=== PATIENT | male | born 1975 | race Caucasian/White ===

== ENCOUNTER 2018-01-07 18:58 | Inpatient (IN) | payer OTHER ==
[2018-01-07] MEDS ORDERED: NACL 0.9% 3 ML SYG IV (21:00)
[2018-01-07] MEDS ORDERED: DOCUSATE SODIUM 100 MG CAP PO (21:00)
[2018-01-07] MEDS ORDERED: BISACODYL (EC) 5 MG TAB PO (21:00)
[2018-01-07 21:19] LABS: ADD MAN DIFF? NO
[2018-01-07 21:21] LABS: BASOPHILS % 0.2 % (0.0-2.0); HEMATOCRIT 46.7 % (42.0-52.0); LYMPHOCYTES # 1.2 10^3/ul (0.8-2.9); LYMPHOCYTES % 12.4 % (15.0-51.0); MEAN CORPUSCULAR HEMOGLOBIN 28.2 pg (29.0-33.0); MEAN CORPUSCULAR HGB CONC 32.1 g/dl (32.0-37.0); MEAN CORPUSCULAR VOLUME 87.9 fl (82.0-101.0); MEAN PLATELET VOLUME 9.5 fl (7.4-10.4); MONOCYTE # 0.9 10^3/ul (0.3-0.9); MONOCYTES % 9.2 % (0.0-11.0); NEUTROPHIL # 7.2 10^3/ul (1.6-7.5); NEUTROPHILS % 77.7 % (39.0-77.0); PLATELET COUNT 195 10^3/UL (140-415); RED BLOOD COUNT 5.31 10^6/ul (4.70-6.10); RED CELL DISTRIBUTION WIDTH 12.6 % (11.5-14.5)
[2018-01-07 21:21] LABS: WHITE BLOOD COUNT 9.3 10^3/ul (4.8-10.8)
[2018-01-07] MEDS: ONDANSETRON 4 MG INJ IV (21:33)
[2018-01-07] MEDS: SOD CHLORIDE 0.9% 1,000 ML IV (21:34)
[2018-01-07] MEDS: TAMSULOSIN (SR) 0.4 MG CAP PO (21:34)
[2018-01-07] MEDS: HYDROmorphONE 0.5 MG/0.5 ML SYG IV (21:35)
[2018-01-07 21:38] LABS: ALANINE AMINOTRANSFERASE 32 IU/L (13-69); ALBUMIN 3.6 g/dl (3.3-4.9); ALBUMIN/GLOBULIN RATIO 1.44; ALKALINE PHOSPHATASE 47 IU/L (42-121); ANION GAP 13 (8-16); ASPARTATE AMINO TRANSFERASE 18 IU/L (15-46); BILIRUBIN,INDIRECT 0.8 mg/dl (0-1.1); BILIRUBIN,TOTAL 0.8 mg/dl (0.2-1.3); BLOOD UREA NITROGEN 18 mg/dl (7-20); CALCIUM 8.8 mg/dl (8.4-10.2); CARBON DIOXIDE 25 mmol/L (21-31); CHLORIDE 109 mmol/L (97-110); CREATININE 1.42 mg/dl (0.61-1.24); GLUCOSE 104 mg/dl (70-220); POTASSIUM 5.4 mmol/L (3.5-5.1); SODIUM 142 mmol/L (135-144); TOTAL PROTEIN 6.1 g/dl (6.1-8.1)
[2018-01-07 21:40] LABS: INR 1.08; PARTIAL THROMBOPLASTIN TIME 26.9 Sec (25.0-35.0); PROTIME 14.1 Sec (11.9-14.9); PT RATIO 1.1
[2018-01-08 01:43] LABS: ADD UMIC YES; UR ASCORBIC ACID NEGATIVE (NEGATIVE); UR BILIRUBIN (Dip) NEGATIVE (NEGATIVE); UR BLOOD (Dip) 3+ mg/dL (NEGATIVE); UR CLARITY CLEAR (CLEAR); UR COLOR YELLOW (YELLOW); UR GLUCOSE (Dip) NEGATIVE (NEGATIVE); UR KETONES (Dip) 2+ mg/dL (NEGATIVE); UR LEUKOCYTE ESTERASE (Dip) NEGATIVE Leu/ul (NEGATIVE); UR MUCUS FEW /HPF (NONE SEEN); UR NITRITE (Dip) NEGATIVE (NEGATIVE); UR RBC > 182 /HPF (0-5); UR SPECIFIC GRAVITY (Dip) 1.032 (1.003-1.030); UR TOTAL PROTEIN (Dip) NEGATIVE (NEGATIVE); UR UROBILINOGEN (Dip) 1+ mg/dL (NEGATIVE); UR WBC 2 /HPF (0-5)
[2018-01-08] MEDS: HYDROmorphONE 0.5 MG/0.5 ML SYG IV ×4 (04:01→12:39)
[2018-01-08] MEDS: ONDANSETRON 4 MG INJ IV ×2 (04:01→19:40)
[2018-01-08] MEDS: SOD CHLORIDE 0.9% 1,000 ML IV ×3 (05:15→20:39)
[2018-01-08] MEDS: SOD CHLORIDE 0.9% 500 ML IV (05:23)
[2018-01-08 05:29] LABS: ADD MAN DIFF? NO
[2018-01-08 05:36] LABS: BASOPHILS % 0.5 % (0.0-2.0); EOSINOPHILS # 0.1 10^3/ul (0.0-0.5); EOSINOPHILS % 0.9 % (0.0-7.0); HEMATOCRIT 45.7 % (42.0-52.0); HEMOGLOBIN 14.6 g/dl (14.0-18.0); LYMPHOCYTES # 1.7 10^3/ul (0.8-2.9); LYMPHOCYTES % 21.5 % (15.0-51.0); MEAN CORPUSCULAR HEMOGLOBIN 28.4 pg (29.0-33.0); MEAN CORPUSCULAR HGB CONC 31.9 g/dl (32.0-37.0); MEAN CORPUSCULAR VOLUME 88.9 fl (82.0-101.0); MEAN PLATELET VOLUME 10.1 fl (7.4-10.4); MONOCYTE # 0.7 10^3/ul (0.3-0.9); MONOCYTES % 8.6 % (0.0-11.0); NEUTROPHIL # 5.5 10^3/ul (1.6-7.5); NEUTROPHILS % 68.3 % (39.0-77.0); PLATELET COUNT 168 10^3/UL (140-415); RED BLOOD COUNT 5.14 10^6/ul (4.70-6.10); RED CELL DISTRIBUTION WIDTH 12.7 % (11.5-14.5)
[2018-01-08 05:59] LABS: ALANINE AMINOTRANSFERASE 31 IU/L (13-69); ALBUMIN 3.3 g/dl (3.3-4.9); ALBUMIN/GLOBULIN RATIO 1.32; ALKALINE PHOSPHATASE 48 IU/L (42-121); ANION GAP 13 (8-16); ASPARTATE AMINO TRANSFERASE 17 IU/L (15-46); BILIRUBIN,INDIRECT 0.8 mg/dl (0-1.1); BILIRUBIN,TOTAL 0.8 mg/dl (0.2-1.3); BLOOD UREA NITROGEN 20 mg/dl (7-20); CALCIUM 8.6 mg/dl (8.4-10.2); CARBON DIOXIDE 25 mmol/L (21-31); CHLORIDE 111 mmol/L (97-110); CREATININE 1.55 mg/dl (0.61-1.24); GLUCOSE 91 mg/dl (70-220); MAGNESIUM 1.9 mg/dl (1.7-2.5); SODIUM 144 mmol/L (135-144); TOTAL PROTEIN 5.8 g/dl (6.1-8.1)
[2018-01-08 07:27] LABS: T3 UPTAKE 36.7 % (23.5-40.5)
[2018-01-08 07:40] LABS: THYROID STIMULATING HORMONE 0.472 MIU/L (0.465-4.680)
[2018-01-08] MEDS: ACETAMINOPHEN 325 MG TAB PO ×2 (10:22→17:27)
[2018-01-08] MEDS ORDERED: morphine (ER) 15 MG TAB PO (15:00)
[2018-01-08] MEDS: HYDROmorphONE 1 MG/ML SYG IV ×2 (15:06→19:45)
[2018-01-08] MEDS: TAMSULOSIN (SR) 0.4 MG CAP PO ×2 (16:12→20:39)
[2018-01-08] MEDS: VENLAFAXINE (XR) 75 MG CAP PO (20:30)
[2018-01-08] MEDS: morphine (ER) 15 MG TAB PO (20:39)
[2018-01-09] MEDS: HYDROmorphONE 1 MG/ML SYG IV ×4 (01:25→23:32)
[2018-01-09] MEDS: ACETAMINOPHEN 325 MG TAB PO ×2 (05:25→12:57)
[2018-01-09] MEDS: PANTOPRAZOLE (EC) 40 MG TAB PO (05:25)
[2018-01-09] MEDS: SOD CHLORIDE 0.9% 1,000 ML IV ×3 (05:26→16:55)
[2018-01-09 05:51] LABS: WHITE BLOOD COUNT 11.6 10^3/ul (4.8-10.8)
[2018-01-09 05:51] LABS: ADD MAN DIFF? NO; BASOPHILS % 0.3 % (0.0-2.0); EOSINOPHILS % 0.1 % (0.0-7.0); HEMATOCRIT 47.2 % (42.0-52.0); HEMOGLOBIN 14.8 g/dl (14.0-18.0); LYMPHOCYTES # 0.9 10^3/ul (0.8-2.9); MEAN CORPUSCULAR HGB CONC 31.4 g/dl (32.0-37.0); MEAN CORPUSCULAR VOLUME 89.4 fl (82.0-101.0); MEAN PLATELET VOLUME 10.3 fl (7.4-10.4); MONOCYTE # 0.9 10^3/ul (0.3-0.9); MONOCYTES % 7.4 % (0.0-11.0); NEUTROPHIL # 9.8 10^3/ul (1.6-7.5); NEUTROPHILS % 83.8 % (39.0-77.0); PLATELET COUNT 179 10^3/UL (140-415); RED BLOOD COUNT 5.28 10^6/ul (4.70-6.10); RED CELL DISTRIBUTION WIDTH 12.8 % (11.5-14.5)
[2018-01-09 06:11] LABS: ALANINE AMINOTRANSFERASE 26 IU/L (13-69); ALBUMIN 3.5 g/dl (3.3-4.9); ALKALINE PHOSPHATASE 47 IU/L (42-121); ANION GAP 11 (8-16); ASPARTATE AMINO TRANSFERASE 14 IU/L (15-46); BILIRUBIN,INDIRECT 0.6 mg/dl (0-1.1); BILIRUBIN,TOTAL 0.6 mg/dl (0.2-1.3); BLOOD UREA NITROGEN 14 mg/dl (7-20); CALCIUM 8.6 mg/dl (8.4-10.2); CARBON DIOXIDE 28 mmol/L (21-31); CHLORIDE 109 mmol/L (97-110); CREATININE 1.35 mg/dl (0.61-1.24); GLUCOSE 104 mg/dl (70-220); POTASSIUM 5.2 mmol/L (3.5-5.1); SODIUM 143 mmol/L (135-144)
[2018-01-09 06:39] LABS: INR 1.12; PROTIME 14.6 Sec (11.9-14.9); PT RATIO 1.1
[2018-01-09] MEDS: TAMSULOSIN (SR) 0.4 MG CAP PO ×2 (08:13→21:15)
[2018-01-09] MEDS: VENLAFAXINE (XR) 75 MG CAP PO (08:13)
[2018-01-09] MEDS: morphine (ER) 15 MG TAB PO ×2 (08:14→21:16)
[2018-01-09] MEDS: NA POLYST SULFON 15 GM/60 ML BTL PO (17:46)
[2018-01-10] MEDS: SOD CHLORIDE 0.9% 1,000 ML IV ×4 (01:13→17:42)
[2018-01-10] MEDS: PANTOPRAZOLE (EC) 40 MG TAB PO (05:55)
[2018-01-10 06:35] LABS: ANION GAP 13 (8-16); BLOOD UREA NITROGEN 12 mg/dl (7-20); CALCIUM 8.7 mg/dl (8.4-10.2); CARBON DIOXIDE 27 mmol/L (21-31); CHLORIDE 108 mmol/L (97-110); CREATININE 1.34 mg/dl (0.61-1.24); GLUCOSE 99 mg/dl (70-220); POTASSIUM 5.2 mmol/L (3.5-5.1); SODIUM 143 mmol/L (135-144)
[2018-01-10] MEDS: HYDROmorphONE 1 MG/ML SYG IV ×2 (06:42→13:31)
[2018-01-10] MEDS: VENLAFAXINE (XR) 75 MG CAP PO (08:54)
[2018-01-10] MEDS: TAMSULOSIN (SR) 0.4 MG CAP PO ×2 (08:54→20:41)
[2018-01-10] MEDS: morphine (ER) 15 MG TAB PO ×2 (08:56→22:00)
[2018-01-10] MEDS: NA POLYST SULFON 15 GM/60 ML BTL PO (08:57)
[2018-01-10] MEDS: ACETAMINOPHEN 325 MG TAB PO (17:27)
[2018-01-10] MEDS: HYDROmorphONE 2 MG TAB PO (20:41)
[2018-01-11] MEDS: PANTOPRAZOLE (EC) 40 MG TAB PO (06:06)
[2018-01-11 06:42] LABS: ANION GAP 10 (8-16); BLOOD UREA NITROGEN 9 mg/dl (7-20); CALCIUM 8.5 mg/dl (8.4-10.2); CARBON DIOXIDE 29 mmol/L (21-31); CHLORIDE 109 mmol/L (97-110); CREATININE 0.86 mg/dl (0.61-1.24); GLUCOSE 93 mg/dl (70-220); POTASSIUM 4.2 mmol/L (3.5-5.1); SODIUM 144 mmol/L (135-144)
[2018-01-11] MEDS: VENLAFAXINE (XR) 75 MG CAP PO (08:34)
[2018-01-11] MEDS: morphine (ER) 15 MG TAB PO (08:34)
[2018-01-11] MEDS: TAMSULOSIN (SR) 0.4 MG CAP PO (08:34)
[2018-01-14 00:17] LABS: SPECIMEN SOURCE Urine
== END 2018-01-11 10:36 | disposition home or self-care (01) | DRG 694 ==
LOC: REC 18:58 → PP2 20:05
DX: N13.2 Hydronephrosis with renal and ureteral calculous obstruction (principal); N17.9 Acute kidney failure, unspecified; E66.9 Obesity, unspecified; Z68.33 Body mass index [BMI] 33.0-33.9, adult
CPT/HCPCS: 74018; 76775; 80048; 80053; 81001; 82355; 83036; 83735; 84436; 84443; 84479; 85025; 85610; 85730